=== PATIENT | male | born 1955 | race Caucasian/White ===

== ENCOUNTER 2017-04-02 04:23 | Observation (INO) | payer OTHER ==
[2017-04-02 06:28] LABS: Hematocrit 47 % (42-52); Hemoglobin 16.4 g/dl (14.0-18.0); Mean Corpuscular HGB Conc 35 g/dl (31-36); Mean Corpuscular Hemoglobin 32 pg (27-31); Mean Corpuscular Volume 89 fL (80-94); Mean Platelet Volume 7 um3 (7.4-10.4); Red Cell Distribution Width 13 % (10.5-15)
[2017-04-02 06:35] LABS: Urine Bacteria Absent (Absent); Urine Bilirubin Negative (Negative); Urine Glucose Negative (Negative); Urine Nitrite Negative (Negative)
[2017-04-02 06:42] LABS: ALT 25 U/L (7-52); Albumin 4.2 g/dL (3.2-5.2); Alkaline Phosphatase 83 U/L (34-104); Blood Urea Nitrogen 19 mg/dL (6-24); CO2 Carbon Dioxide 23 mmol/L (22-32); Calcium 9.7 mg/dL (8.6-10.3); Chloride 103 mmol/L (101-111); EGFR African American 98.4 (>60); EGFR Non-African American 76.5 (>60); Globulin 3.4 g/dL (2-4); Glucose 106 mg/dL (70-100); Sodium 134 mmol/L (133-145); Total Protein 7.6 g/dL (6.4-8.9)
[2017-04-02 06:45] LABS: Troponin I 0.01 ng/mL (<0.04)
--- NOTE | 2017-04-02 07:26 | ED ---
Regan Acosta Nikita, scribed for Vernon Leslie on 04/02/17 at 0548 . Complex/Multi-Sys Presentation - HPI Summary HPI Summary: This patient is a 51 year old M presenting to ED with a chief complaint of dizziness since 1400 yesterday afternoon. The CC is described as he just does not feel well. The patient rates the pain 0/10 in severity. Symptoms aggravated by nothing. Symptoms alleviated by nothing. Patient reports near- syncope, hazy vision, fall s/p L foot wasnt working for 2 minutes, GREGORY, and inability to walk. Patient denies L arm tingling/numbness/weakness. - History Of Current Complaint Chief Complaint: EDDizziness Time Seen by Provider: 04/02/17 05:26 Hx Obtained From: Patient Onset/Duration: Sudden Onset, Lasting Minutes, Resolved Timing: Minutes Severity Currently: None Aggravating Factor(s): nothing Alleviating Factor(s): nothing Associated Signs And Symptoms: Positive: Other - Patient reports dizziness, near -syncope, hazy vision, fall s/p L foot wasnt working for 2 minutes, GREGORY, and inability to walk. Patient denies L arm tingling/numbness/weakness. - Allergies/Home Medications Allergies/Adverse Reactions: Allergies Allergy/AdvReac Type Severity Reaction Status Date / Time No Known Allergies Allergy Verified 06/22/15 13:47 Home Medications: Home Medications NK [No Home Medications Reported] 04/02/17 [History Confirmed 04/02/17] PMH/Surg Hx/FS Hx/Imm Hx Endocrine/Hematology History: Denies: Hx Diabetes Cardiovascular History: Denies: Hx Hypertension, Hx Pacemaker/ICD History: Denies: Hx Renal Disease Sensory History: Denies: Hx Hearing Aid Psychiatric History: Denies: Hx Panic Disorder Infectious Disease History: No Infectious Disease History: Reports: Hx Hepatitis - HEP C - STATES "GONE NOW" Denies: Traveled Outside the [place] in Last 30 Days - Family History Known Family History: Negative: Cardiac Disease, Hypertension, Diabetes - Social History Alcohol Use: None Substance Use Type: Reports: None Smoking Status (MU): Heavy Every Day Tobacco Smoker Type: Cigarettes Amount Used/How Often: 1 PPD Review of Systems Positive: Blurred Vision Positive: Other - fall s/p L foot wasnt working Neurological: Other - dizziness, near-syncope, "L foot wasnt working for 2 minutes, unable to walk; denies L arm tingling/numbness/weakness Positive: Headache All Other Systems Reviewed And Are Negative: Yes Physical Exam - Summary Physical Exam Summary: NIH score of 0 Triage Information Reviewed: Yes Vital Signs On Initial Exam: Initial Vitals Temp Pulse Resp BP Pulse Ox 96.9 F 91 18 0/0 99 04/02/17 04:25 04/02/17 04:25 04/02/17 04:25 04/02/17 04:25 04/02/17 04:25 Vital Signs Reviewed: Yes Appearance: Positive: Well-Appearing, No Pain Distress Skin: Positive: Warm, Skin Color Reflects Adequate Perfusion, Dry Head/Face: Positive: Normal Head/Face Inspection Eyes: Positive: EOMI, CALDERON ENT: Positive: Normal ENT inspection Neck: Positive: Supple, Nontender Respiratory/Lung Sounds: Positive: Clear to Auscultation, Breath Sounds Present Cardiovascular: Positive: RRR, Pulses are Symmetrical in both Upper and Lower Extremities Abdomen Description: Positive: Nontender, Soft Bowel Sounds: Positive: Present Musculoskeletal: Positive: Normal, Strength/ROM Intact Neurological: Positive: Normal, Sensory/Motor Intact, Alert, Oriented to Person Place, Time - [place] Coma Scale Coma Scale Total: 15 Diagnostics - Vital Signs Vital Signs Temp Pulse Resp BP Pulse Ox 04/02/17 05:07 91 96 04/02/17 05:05 135/77 04/02/17 04:25 96.9 F 91 18 0/0 99 - Laboratory Lab Results: Lab Results 04/02/17 04/02/17 04/02/17 Range/Units 06:05 06:05 06:05 WBC 14.0 H (3.5-10.8) 10^3/ul RBC 5.20 (4.0-5.4) 10^6/ul Hgb 16.4 (14.0-18.0) g/dl Hct 47 (42-52) % MCV 89 (80-94) fL MCH 32 H (27-31) pg MCHC 35 (31-36) g/dl RDW 13 (10.5-15) % Plt Count 291 (150-450) 10^3/ul MPV 7 L (7.4-10.4) um3 Neut % (Auto) 71.3 (38-83) % Lymph % (Auto) 19.5 L (25-47) % Roosevelt % (Auto) 7.0 (1-9) % Eos % (Auto) 1.5 (0-6) % Baso % (Auto) 0.7 (0-2) % Absolute Neuts (auto) 10.0 H (1.5-7.7) 10^3/ul Absolute Lymphs (auto) 2.7 (1.0-4.8) 10^3/ul Absolute Monos (auto) 1.0 H (0-0.8) 10^3/ul Absolute Eos (auto) 0.2 (0-0.6) 10^3/ul Absolute Basos (auto) 0.1 (0-0.2) 10^3/ul Absolute Nucleated RBC 0.01 10^3/ul Nucleated RBC % 0 INR (Anticoag Therapy) 0.94 (0.89-1.11) APTT 29.3 (26.0-36.3) seconds Sodium 134 (133-145) mmol/L Potassium Pending Chloride 103 (101-111) mmol/L Carbon Dioxide 23 (22-32) mmol/L Anion Gap Pending BUN 19 (6-24) mg/dL Creatinine 1.00 (0.67-1.17) mg/dL Est GFR ( Amer) 98.4 (>60) Est GFR (Non-Af Amer) 76.5 (>60) BUN/Creatinine Ratio 19.0 (8-20) Glucose 106 H (70-100) mg/dL Calcium 9.7 (8.6-10.3) mg/dL Total Bilirubin 0.40 (0.2-1.0) mg/dL AST Pending ALT 25 (7-52) U/L Alkaline Phosphatase 83 (34-104) U/L Troponin I 0.01 (<0.04) ng/mL Total Protein 7.6 (6.4-8.9) g/dL Albumin 4.2 (3.2-5.2) g/dL Globulin 3.4 (2-4) g/dL Albumin/Globulin Ratio 1.2 (1-3) Urine Color Urine Appearance Urine pH (5-9) Ur Specific [place] (1.010-1.030) Urine Protein (Negative) Urine Ketones (Negative) Urine Blood (Negative) Urine Nitrate (Negative) Urine Bilirubin (Negative) Urine Urobilinogen (Negative) Ur Leukocyte Esterase (Negative) Urine WBC (Auto) (Absent) Urine RBC (Auto) (Absent) Urine Bacteria (Absent) Urine Glucose (Negative) 04/02/17 Range/Units 06:05 WBC (3.5-10.8) 10^3/ul RBC (4.0-5.4) 10^6/ul Hgb (14.0-18.0) g/dl Hct (42-52) % MCV (80-94) fL MCH (27-31) pg MCHC (31-36) g/dl RDW (10.5-15) % Plt Count (150-450) 10^3/ul MPV (7.4-10.4) um3 Neut % (Auto) (38-83) % Lymph % (Auto) (25-47) % Roosevelt % (Auto) (1-9) % Eos % (Auto) (0-6) % Baso % (Auto) (0-2) % Absolute Neuts (auto) (1.5-7.7) 10^3/ul Absolute Lymphs (auto) (1.0-4.8) 10^3/ul Absolute Monos (auto) (0-0.8) 10^3/ul Absolute Eos (auto) (0-0.6) 10^3/ul Absolute Basos (auto) (0-0.2) 10^3/ul Absolute Nucleated RBC 10^3/ul Nucleated RBC % INR (Anticoag Therapy) (0.89-1.11) APTT (26.0-36.3) seconds Sodium (133-145) mmol/L Potassium Chloride (101-111) mmol/L Carbon Dioxide (22-32) mmol/L Anion Gap BUN (6-24) mg/dL Creatinine (0.67-1.17) mg/dL Est GFR ( Amer) (>60) Est GFR (Non-Af Amer) (>60) BUN/Creatinine Ratio (8-20) Glucose (70-100) mg/dL Calcium (8.6-10.3) mg/dL Total Bilirubin (0.2-1.0) mg/dL AST ALT (7-52) U/L Alkaline Phosphatase (34-104) U/L Troponin I (<0.04) ng/mL Total Protein (6.4-8.9) g/dL Albumin (3.2-5.2) g/dL Globulin (2-4) g/dL Albumin/Globulin Ratio (1-3) Urine Color Yellow Urine Appearance Clear Urine pH 5.0 (5-9) Ur Specific [place] 1.013 (1.010-1.030) Urine Protein Negative (Negative) Urine Ketones Negative (Negative) Urine Blood 1+ H (Negative) Urine Nitrate Negative (Negative) Urine Bilirubin Negative (Negative) Urine Urobilinogen Negative (Negative) Ur Leukocyte Esterase Negative (Negative) Urine WBC (Auto) Absent (Absent) Urine RBC (Auto) Trace(0-2/hpf) (Absent) Urine Bacteria Absent (Absent) Urine Glucose Negative (Negative) Result Diagrams: 04/02/17 06:05 04/02/17 06:05 Lab Statement: Any lab studies that have been ordered have been reviewed, and results considered in the medical decision making process. - Radiology CXR Radiology Interpretation Completed By: ED Physician - negative - CT Head CT Interpretation Completed By: Radiologist - Normal exam. ED physician has reviewed this radiology report and agrees. - EKG 0445 Cardiac Rate: NL EKG Rhythm: Sinus Rhythm - 84 bpm EKG Interpretation: no acute changes Complex Multi-Symp Course/Dx Assessment/Plan: This patient is a 51 year old M presenting to ED with a chief complaint of dizziness since 1400 yesterday afternoon. Patient reports near- syncope, hazy vision, fall s/p L foot wasnt working for 2 minutes, GREGORY, and inability to walk. Patient denies L arm tingling/numbness/weakness. Head CT reveals normal exam. CXR shows negative. EKG reveals NSR at 84 bpm and no acute changes. Consulted Dr. Rodriguez at 0719 who accepts pt for admission. Pt will be admitted. - Diagnoses Differential Diagnoses/HQI/PQRI: CVA, Metabolic Abnormality - syncopy, Other - syncope, TIA Provider Diagnoses: TIA (transient ischemic attack), Syncope - Physician Notifications Discussed Care Of Patient With: Luz Marina Rodriguez Time Discussed With Above Provider: 07:19 Instructed by Provider To: Other - Consulted Dr. Rodriguez who accepts pt for admission. - Critical Care Time Critical Care Time: 30-74 min Discharge - Discharge Plan Condition: Stable Disposition: ADMITTED TO [facility] Referrals: No Primary Care Phys,NOPCP [Primary Care Provider] - The documentation as recorded by the Regan washington Nikita accurately reflects the service I personally performed and the decisions made by , Vernon Leslie.
[2017-04-02 08:10] LABS: Anion Gap 8 mmol/L (2-11)
--- NOTE | 2017-04-02 08:17 | RAD ---
INDICATION: TIA. COMPARISON: There are no prior studies available for comparison. TECHNIQUE: A portable view of the chest was obtained. FINDINGS: Cardiac and mediastinal contours appear to be within normal limits. The lungs are clear. No pleural effusion is seen. IMPRESSION: NO EVIDENCE FOR ACUTE DISEASE.
--- NOTE | 2017-04-02 08:19 | RAD ---
Indication: Sudden loss of feeling to the lower extremity. LEFT side weakness. Syncope. Comparison: No relevant prior exams available on the [facility] [place] for comparison. Technique: Noncontrast CT vertex of skull through foramen magnum. Report: The sulci, ventricles, and basal cisterns are normal for age. Craven matter white matter differentiation is preserved without evidence for edema. No intra or extra axial hemorrhage, mass, or fluid collection detected. Unremarkable visualized orbital contents. Unremarkable calvarium and skull base. Unremarkable scalp. The visualized paranasal sinuses and mastoid air spaces are clear. IMPRESSION: Negative unenhanced head CT.
[2017-04-02 08:55] LABS: Cholesterol 228 mg/dL; LDL Cholesterol 147 mg/dL; Triglycerides 221 mg/dL
[2017-04-02] MEDS ORDERED: Ondansetron INJ* 2 MG/ML VIAL IV PRN (08:58)
[2017-04-02] MEDS ORDERED: Acetaminophen TAB* 325 MG PO PRN (08:58)
[2017-04-02] MEDS ORDERED: Mouth Piece, Nicotine* 1 EACH CARTRIDGE INH PRN (08:59)
[2017-04-02] MEDS ORDERED: Nicotine Inhaler* 10 MG AMP INH PRN (08:59)
[2017-04-02] MEDS: Aspirin EC Low Dose* 81 MG TAB.EC PO SCH (09:13)
[2017-04-02] MEDS ORDERED: Iohexol 350* (CONTRAST) 500 ML MDV IV ONE (09:21)
--- NOTE | 2017-04-02 10:39 | RAD ---
INDICATION: Near syncopal episode. Functional loss at the LEFT leg . Visual changes. Question TIA/stroke. COMPARISON: No relevant prior exams available [place] the [facility] [place] for comparison. TECHNIQUE: Multidetector CT images were obtained from the aortic arch to the vertex of the head with 80 mL Omnipaque 350 IV contrast. Arterial phase of enhancement. Multiplanar reformation including maximum intensity projection. 3-D arterial volume rendering. Stenosis estimations based on denominator of distal arterial diameter. NECK ANGIOGRAM REPORT: Emphysema noted at the visualized lung apices. Normal configuration of the branch vessels at the aortic arch. Mild atherosclerotic plaque without suggestion of ostial stenosis. Noncalcific plaque results in high-grade approximate 90% stenosis at the post ostial proximal segment of the LEFT subclavian artery. Mild calcific and noncalcific plaque at the RIGHT carotid bulb and proximal internal carotid artery with approximate 20% stenosis resulting. Mild calcific and noncalcific plaque at the LEFT carotid bulb and proximal internal carotid artery with approximate 30% stenosis resulting. Noncalcific plaque at the distal RIGHT vertebral artery at the level of the foramen magnum just distal to the origin of the RIGHT posterior inferior cerebellar artery results in approximate 70% short segment stenosis. Patent unremarkable LEFT vertebral artery. NECK ANGIOGRAM IMPRESSION: 1. Approximate 20% RIGHT internal carotid artery and 30% LEFT internal carotid artery stenosis. 2. Short segment approximate 70% stenosis at the distal RIGHT vertebral artery. 3. Approximate 70% short segment stenosis at the post ostial proximal segment of the LEFT vertebral artery. 4. Given finding of RIGHT vertebral artery stenosis and high-grade stenosis at the proximal LEFT subclavian artery consider carotid ultrasound to assess for potential retrograde flow in the LEFT vertebral artery/subclavian steal. HEAD ANGIOGRAM REPORT: Mild calcific plaque at the carotid siphons without suggestion of hemodynamic significant stenosis. Patent first and second segments of the middle cerebral arteries as well as the first and second segments of the anterior cerebral arteries. Small patent anterior communicating artery. Unremarkable basilar artery and cerebellar artery origins. Patent RIGHT posterior cerebral artery supplied primarily by the posterior circulation with variant hypoplastic RIGHT posterior communicating artery. Patent LEFT posterior cerebral artery supplied primarily by the anterior circulation with variant hypoplastic P1 segment; persistent origin variant. No intracranial aneurysm or vascular malformation evident. HEAD ANGIOGRAM IMPRESSION: 1. Negative for large vessel central intracranial arterial stenosis or occlusion. 2. No intracranial aneurysm evident. CPT II: CPT II Codes: 3100F
--- NOTE | 2017-04-02 11:22 | HP ---
CC: Dr. Bryan HISTORY AND PHYSICAL: DATE OF ADMISSION: 04/02/17 TIME OF EVALUATION: 8:30 a.m. PRIMARY CARE PROVIDER: The patient has no primary care provider. CONSULTING NEUROLOGIST: Dr. Bryan. CHIEF COMPLAINT: "I could not move my leg." HISTORY OF PRESENT ILLNESS: Mr. Nance is a 61-year-old male with past medical history of tobacco abuse that presents to the emergency room with complaint of an episode of being unable to move his le ft leg. He states he was at work, in his usual state of health, when he went to his car to take his break. H e describes he "tripped" on his left side visual field that he could not see well. He got scared wit h that symptom and decided to go back to the building. He got out of his car, but he was unable to a mbulate as he could not move his left leg. He states that he felt dizzy and fell towards his right s jack. He crawled from the parking lot to the building and by the time he got inside, he was able to mo ve his left leg again and was able to ask for help. At that point, the visual field changes and the weakness had resolved and they had lasted a couple minutes. He decided to clock out and go back home, and by the time he got back into his car, the same visual f ield defect happened on his left side. He waited for it to resolve and then decided to drive to the emergency room for further evaluation. At this time, he denies any symptoms. The visual field defec t has resolved. He is able to move all 4 extremities. He denies any tingling or numbness. No alegria e in speech. No chest pain. No palpitations or any other complaints. He states he never had an epi sode like this before, but he does have limited contact with the healthcare system. PAST MEDICAL HISTORY: Tobacco abuse. MEDICATIONS LIST: The patient takes no medications at home. ALLERGIES: No known drug allergies. FAMILY HISTORY: Father was smoker and of throat cancer. Mom is alive and had breast cancer. SOCIAL HISTORY: The patient has been a smoker since age 17 at 1-1/2 to 2 packs a day. He states he drinks occasionally, sometimes a beer a month. Denies any drug use. 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 Surrogate decision maker is his sister, Meagan Nance, phone number is [phone]. REVIEW OF SYSTEMS: A 14-point review of systems was performed and all the pertinent negative and pos itive findings are in the HPI. PHYSICAL EXAMINATION GENERAL: The patient is a middle-aged male, lying in the ED stretcher, in no acute distress. VITAL SIGNS: Temperature 96.9, heart rate is 88, respiratory rate is 18, oxygen saturation is 94% on room air, blood pressure is 140/81. HEENT: Pupils are equal, reactive to light. Extraocular movements intact. Moist mucous membranes. CHEST: Breath sounds present bilaterally with no added sounds. CVS: Normal S1, S2. Regular rate and rhythm. ABDOMEN: Soft. Bowel sounds present. EXTREMITIES: No edema. NEUROLOGIC: He is alert, oriented x3. Visual khanna are intact at this time. Face is symmetric. Sp eech is clear. He is able to move all 4 extremities. Sensation is intact. LABORATORY AND IMAGING DATA: The patient had a CBC that showed WBC of 14, hemoglobin of 16.4, hemat ocrit 47, platelet count 291 with 71% neutrophils. INR is 0.94. Chemistry showed sodium of 134, chl oride of 103, bicarb of 23, BUN of 19, creatinine of 1, glucose of 106, calcium 9.7. LFTs were dann l. Lipid profile showed triglycerides of 221, cholesterol of 228, LDL of 147, HDL of 37. Urinalysis showed only 1+ blood. EKG showed normal sinus rhythm at 84 beats per minute with no ST-T changes, no prior EKG to compare. CT of the brain without contrast was negative, unenhanced head CT. Chest x-ray showed no evidence fo r acute disease. ASSESSMENT AND PLAN: Mr. Nance is a 61-year-old male with a past medical history of tobacco abuse that presents to the emergency room after episodes of left visual field loss and left lower extremit y weakness, who is going to be admitted for transient ischemic attack workup. 1. Probable transient ischemic attack. The patient will be admitted as observation to the telemetry floor. We are going to continue aspirin and add atorvastatin for his hyperlipidemia. The patient w ill be observed with neurological checks. He will have an MRI of the brain without contrast, CT of t he head and neck, and echocardiogram with bubble study as part of his workup. A consultation was max solo with Neurology (Dr. Bryan). 2. Tobacco abuse. The patient will receive nicotine supplementation. 3. DVT prophylaxis. The patient has a score of 2 on the DVT Prophylaxis Risk Assessment Guide. He will be started on subcutaneous heparin. 4. Code status is full. TIME SPENT: Approximately 50 minutes spent with the patient, interview, medical records review, phys ical examination to complete this admission; more than half of this time was spent [id number] with the patient and coordination of care. [id number]/[facility] #: [id number]
[2017-04-02] MEDS ORDERED: Influenza VAC *QUAD* 2017-18* 0.5 ML SYRINGE IM ONE (12:00)
[2017-04-02] MEDS: Heparin VIAL(*) 5000 UNITS/ML VIAL (FIVE THOUSAND) SUBCUT SCH ×2 (13:43→21:20)
--- NOTE | 2017-04-02 16:39 | ECHO ---
Patient: RADHA MCDOWELL [facility] Rec#: [id number] : 1955 Date: 04/02/2017 Age: 61y Height: 175.26 cm / 69.0 in Weight: 83.91 kg / 184.9 lbs Sex: M BSA: 2 Room#: [facility] Admit Date#: 04/02/2017 Type: Inpatient Referring: Lzu Marina Elliott MD Reading: Aidan Velasco MD Retirement Actuary: [facility] Transthoracic Echocardiogram Indication: TIA BP: 134/79 HR: 74 Rhythm: NSR Findings History: Smoker, HTN. Technical Comments: The study quality is fair. The study is technically limited due to the patient's smoking history. Completed at 1630. Left Ventricle: The left ventricular chamber size is normal. Mild concentric left ventricular hypertrophy is observed. Global left ventricular wall motion and contractility are within normal limits. There is normal left ventricular systolic function. The estimated ejection fraction is 55-60%. Abnormal left ventricular diastolic function is observed. There is an E to A reversal in the mitral valve flow pattern suggestive of diastolic dysfunction. Left Atrium: The left atrial chamber size is normal. Right Ventricle: Moderator Band present. The right ventricle is mildly dilated. The right ventricular global systolic function is normal. Right Atrium: The right atrium is mildly dilated. Interatrial septum appears intact without evidence of shunting. The bubble study is negative. A patent foramen ovale is not demonstrated with color Doppler and agitated contrast. Aortic Valve: The aortic valve is trileaflet. The aortic valve leaflets are mildly thickened. There is no evidence of aortic regurgitation. Mitral Valve: There is mitral annular calcification. The mitral valve leaflets are moderately thickened. There is trace to mild mitral regurgitation. There is no evidence of mitral stenosis. Tricuspid Valve: The tricuspid valve leaflets are normal. There is mild tricuspid regurgitation. The right ventricular systolic pressure is estimated at 30 mmHg. There is evidence that pulmonary hypertension may be underestimated. There is no tricuspid stenosis. Pulmonic Valve: The pulmonic valve appears normal. There is a trace pulmonic regurgitation. There is no pulmonic stenosis. Pericardium: There is no significant pericardial effusion. Aorta: There is no dilatation of the ascending aorta. The aortic arch is not well visualized. There is mild dilatation of the aortic root. Pulmonary Artery: The main pulmonary artery is not well visualized. Venous: The inferior vena cava appears normal in size. There is a greater than 50% respiratory change in the inferior vena cava dimension. Contrast: Normal saline was used as contrast for the bubble study. Images 49 and 50. Intravenous contrast was used to help determine presence of intracardiac shunting. Conclusions Global left ventricular wall motion and contractility are within normal limits. There is normal left ventricular systolic function. The estimated ejection fraction is 55-60%. The right ventricular global systolic function is normal. A patent foramen ovale is not demonstrated with color Doppler and agitated contrast. There is no evidence of aortic regurgitation. There is trace to mild mitral regurgitation. There is mild tricuspid regurgitation. There is no significant pericardial effusion. Measurements Name Value Normal Range RVIDd (AP) 2D 2.8 cm (0.9 - 2.6) RVDdMajor (2D) 4.4 cm (2.2 - 4.4) RAd ISD 4CH 5.1 cm (3.4 - 4.9) RA (A4C)W 3.9 cm (2.9 - 4.6) IVSd (2D) 1.2 cm (0.6 - 1) LVPWd (2D) 1.1 cm (0.6 - 1) LVIDd (2D) 4.3 cm (3.6 - 5.4) LVIDs (2D) 3.1 cm - LV FS (2D) 28 % (25 - 45) Aortic Annulus 2.3 cm (1.4 - 2.6) Ao root diameter (2D) 3.6 cm (2.1 - 3.5) Ascending Ao 2.8 cm (2.1 - 3.4) LA dimension (AP) 2D 3.6 cm (2.3 - 3.8) LAd ISD 4CH 4.5 cm (2.9 - 5.3) LA ISD 4CH W 3.8 cm (2.5 - 4.5) Name Value Normal Range LA ESV SP 4CH (A/L) 35 ml - LA ESV SP 2CH (A/L) 67 ml - LA ESV BP (A/L) 52 ml - LA ESV BP (A/L) index 26 ml/m2 - LA ESV SP 4CH (MOD) 29 ml - LA ESV SP 2CH (MOD) 63 ml - Name Value Normal Range MV E-wave Vmax 0.56 m/sec - MV deceleration time 234.36 msec - MV A-wave Vmax 0.76 m/sec - MV E:A ratio 0.74 ratio - LV septal e' Vmax 0.07 m/sec - LV lateral e' Vmax 0.09 m/sec - LV E:e' septal ratio 8 ratio - LV E:e' lateral ratio 6.22 ratio - Name Value Normal Range AV Vmax 1.1 m/sec - AV VTI 22.28 cm - AV peak gradient 4.82 mmHg - AV mean gradient 2.94 mmHg - LVOT Vmax 0.95 m/sec - LVOT VTI 17.92 cm - LVOT peak gradient 3.66 mmHg - LVOT mean gradient 2.16 mmHg - Name Value Normal Range TR Vmax 2.6 m/sec - TR peak gradient 27 mmHg - RAP 3 mmHg - RVSP 30 mmHg - IVC diameter 1.8 cm - Name Value Normal Range PV Vmax 0.63 m/sec - PV peak gradient 1.61 mmHg -
[2017-04-02] MEDS ORDERED: Atorvastatin* 40 MG TAB PO SCH (17:00)
--- NOTE | 2017-04-02 17:23 | RAD ---
INDICATION: Evaluate for subclavian steal COMPARISON: CTA of the head and neck from same date TECHNIQUE: Transverse and longitudinal scans of the carotid and vertebral arteries were performed with diaz scale, color Doppler, and spectral Doppler imaging. Stenosis criteria is based on flow velocities that correlate with visual internal carotid artery diameter (NASCET criteria) FINDINGS: Right carotid: There is moderate plaque involving the bifurcation. There is no spectral broadening. The peak systolic velocity of the internal carotid artery is 99 cm/s and the peak diastolic velocity 33 cm/s. The ICA/CCA ratio is calculated at 0.8. This corresponds to a 6 and 50% diameter stenosis. Left carotid: There is moderate plaque involving the bifurcation. There is no spectral broadening. The peak systolic velocity of the internal carotid artery is 102 cm/s and the peak diastolic velocity 38 cm/s. The ICA/CCA ratio is calculated at 0.9. This corresponds to a less than 50% diameter stenosis. Right vertebral: Right vertebral waveforms are normal and the flow is antegrade. Left vertebral: The visualized left vertebral artery appears widely patent. There is retrograde flow consistent with steal phenomena Other: The waveform in the left subclavian artery is abnormal. CT angiography shows a high-grade proximal stenosis. IMPRESSION: 1. The carotid bifurcations are widely patent bilaterally. There is moderate calcific plaque formation. 2. Steal phenomena left vertebral artery. 3. Please refer also to CT angiogram from same date CPT II Codes: 3100F RS
--- NOTE | 2017-04-02 18:37 | RAD ---
INDICATION: TIA COMPARISON: CT brain, CTA of the head and neck, and ultrasound of the carotids all from the same date TECHNIQUE: sagittal T1 FLAIR, axial diffusion, axial T1 FLAIR, axial T2, axial T2 FLAIR, and SWI images were acquired. FINDINGS: Craniocervical junction: The craniocervical junction appears normal. Ventricles/sulci: The ventricles and cisterns are normal in size and configuration for age. Brain parenchyma: Diffusion weighted images demonstrate tiny, punctate, foci of increased signal intensity, one in each cerebellar hemisphere and an additional focus of increased signal intensity in the posterior right parietal lobe consistent with acute ischemia. Multiple vascular distributions suggest possibility of embolic phenomenon. There are no other focal parenchymal abnormalities. There is no evidence of intracranial mass or mass effect. Intracranial hemorrhage: There is no intracranial hemorrhage. Extra-axial spaces: There are no extra-axial fluid collections or masses. Orbits: There are no MR abnormalities of the orbital structures. Paranasal sinuses/mastoid: The paranasal sinuses are clear. The mastoid air cells are well aerated.. Vascular: No abnormalities are seen. Other: None IMPRESSION: TINY INFRATENTORIAL AND INFRATENTORIAL ISCHEMIC FOCI IDENTIFIED AND SUGGEST THE POSSIBILITY OF EMBOLIC PHENOMENA. NO EVIDENCE OF MASS EFFECT OR HEMORRHAGE.
[2017-04-02] MEDS ORDERED: Nicotine Patch Removal NOTE FOLLOW UP SCH (21:00)
--- NOTE | 2017-04-03 01:29 | CONS ---
CONSULTATION REPORT: DATE OF CONSULT/DICTATION: 04/02/17 PATIENT OF: Dr. Guerra. PRIMARY CARE PHYSICIAN: The patient has no primary care doctor. HISTORY OF PRESENT ILLNESS: This is 61-year-old man who, yesterday, developed visual disturbance off the left side of his vision, he did not test to see if this is an ocular or field cut. This persisted today when he was at work and he was taking a break and he developed left leg weakness acutely, which lasted several minutes. His visual disturbance persisted intermittently throughout the day, but resolved by the time he got to the ER, he drove himself. Of note, he is a chronic smoker since age 17, more than a half to 2 packs a day. He has had some elevated cholesterol in the past, but he does not know the details. PAST MEDICAL HISTORY: He has no other known medical problems. MEDICATIONS: He takes no medicines. ALLERGIES: He has no known allergies. FAMILY HISTORY: His father was smoker and of throat cancer. Mom is alive and has breast cancer. SOCIAL HISTORY: He does not do any drugs. He drinks occasionally. 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 REVIEW OF SYSTEMS: Negative in all 14 spheres other than the HPI. PHYSICAL EXAM: Temperature 97.2, pulse 78, respirations 16, blood pressure 135/ 90. He is alert and oriented with normal speech and comprehension. Cranial nerves II through XII are normal. He had no field cut to large objects today. Fundi were benign. Motor exam revealed normal tone, strength, and coordination. Finger-to- nose, he had no pronator drift. Sensation is intact to light touch. Reflexes were 1 and equal. Toes were downgoing. Neck was supple. Chest is clear. Cardiovascular: Regular rate and rhythm. Abdomen: Soft with positive bowel sounds. DIAGNOSTIC STUDIES/LAB DATA: His CT scan was reviewed, which showed no acute findings. His CTA was abnormal for 70% right vertebral artery distal stenosis, 70% left vertebral stenosis. He had left subclavian stenosis that was high-grade. He had 20% right carotid and 30% left carotid stenosis. Labs include, white count of 14,000, hematocrit 47, platelets 291. Normal INR and PTT. Normal CMP other than a cholesterol of 147, glucose 106. UA was negative other than 1+ blood. IMPRESSION AND PLAN: Mr. Nance has what sounds like a left field cut and constant left leg weakness. His symptoms were present for more than 12 hours and probably represent a small stroke. He has vertebrobasilar stenosis and this may have been on the basis of his vertebrobasilar disease. He needs to be on aspirin, statin. He needs to give up smoking, discussed this at length with him. He is going to get a carotid ultrasound to look for subclavian steal as the cause of his presumed basilar artery insufficiency and he will also need echo and an MRI scan. Thank you for sharing his case. [id number]/[facility] #: [id number] ZOILA
[2017-04-03] MEDS: Heparin VIAL(*) 5000 UNITS/ML VIAL (FIVE THOUSAND) SUBCUT SCH ×2 (05:44→15:30)
[2017-04-03] MEDS: Aspirin EC Low Dose* 81 MG TAB.EC PO SCH (07:27)
[2017-04-03] MEDS ORDERED: Nicotine PATCH 21 MG/24 HR* PATCH TRANSDERM SCH (08:00)
[2017-04-03 16:47] VITALS: BP 133/86
--- NOTE | 2017-04-04 03:44 | PN ---
PROGRESS NOTE: DATE OF SERVICE / DICTATION: 04/03/17 PATIENT OF: Dr. Bonds. HISTORY: His symptoms visual symptoms, leg weakness, and he denies any claudication. No past history of this. MEDICATIONS: Include: 1. Atorvastatin 40 mg. 2. Aspirin 81. 3. Nicotine patch. PHYSICAL EXAMINATION: Temperature 98.1, pulse 80, respirations 18, blood pressure 91/70. He is alert and oriented with normal speech and comprehension. Cranial nerves II through XII were intact. Fundi were benign. Motor exam revealed normal tone, strength, coordination and gait. Sensation intact to light touch. Reflexes 2 and equal, downgoing toes. IMPRESSION AND PLAN: I talked to Dr. Hernandez yesterday and then again today after we sent him the remaining images and I discussed with Joshua the full results, namely that his carotid Doppler and CTA showed a clinically significant subclavian steal syndrome involving left vertebral artery and the subclavian artery. His MRI scan showed evidence of infratentorial and ischemic foci. Reviewing the films, Dr. Hernandez thought these may be watershed from the subclavian steal. I discussed with Joshua and Dr. Bonds that we will be treating him with 325 mg of aspirin daily, atorvastatin 80 mg daily, and he needs to quit smoking and is on a patch. Now, he needs a primary doctor, but I will be glad to see him back in addition in [address] Hernandez thought that with maximum medical therapy, things may change and improve somewhat, but if he had any further symptoms of either arm claudication or stroke symptoms, then he would need vascular surgery. He thought it would be reasonable to get a vascular consult as an outpatient now and Dr. Bonds is going to arrange for that either locally or up at [place]. Thank you for sharing his case. [id number]/[facility] #: [id number] ZOILA
--- NOTE | 2017-04-04 04:11 | DS ---
DISCHARGE SUMMARY: DATE OF ADMISSION: 04/02/17 DATE OF DISCHARGE: 04/03/17 ADMITTING PROVIDER: Luz Marina Guerra MD ATTENDING PHYSICIAN: Rivas Bonds MD PRIMARY CARE PROVIDER: The patient cannot recall, but probably at [place] location. CHIEF COMPLAINT: Speech difficulty and then inability to move his left leg. PRINCIPAL DIAGNOSES: 1. Cerebrovascular accident. 2. Transient ischemic attack. 3. Left subclavian steal. PAST MEDICAL HISTORY: Smoking use, current; inconsistent medical followup. HISTORY OF PRESENT ILLNESS AND HOSPITAL COURSE: Mr. Nance is a 61-year-old male with past medical history of active smoker, who presented to the emergency room with complaint of being unable to move his left leg. Initial symptoms were he could not see well out of his left side of his visual field while he was at work and walking to his car on break. Getting out of his car, he was unable to move his left leg at all. He felt dizzy and fell towards his right side, had to crawl from the parking lot to the building. By the time, he got there, he was able to move to his left leg again. Visual field changes and weakness had resolved after a few minutes. He, at the end of his [facility] position, end of day, he went back to his car, the same visual field defects happened on the left side, and when they did not , he drove himself to the emergency room for further evaluation. Visual khanna resolved in the emergency room. He had a neurology consult and a CT brain was obtained which was negative. CTA of the head demonstrated no large vessel or central intracranial arterial stenosis or occlusion or aneurysms. Brain MRI demonstrated tiny infarcts and total ischemic foci suggesting the possibility of embolic phenomenon. No evidence of mass effect or hemorrhage. He had a carotid bilateral Doppler, which showed widely patent carotid bifurcations with moderate calcific plaque formation and demonstration of left vertebral artery steal phenomenon. The CTA of the neck had showed 20% right internal carotid artery and 30% left internal carotid artery stenosis with a short segment of approximately 70% stenosis of the distal right vertebral artery. Approximately 70% short segment stenosis on the post ostial proximal segment of the left vertebral artery. Dr. Bryan evaluated the patient, discussed the case with [facility] Neurology Department who was sent images. He is being recommended discharge on 325 mg aspirin, Lipitor 80 mg daily and follow up with the Vascular Surgery for further evaluation of his left-sided subclavian steal syndrome. The patient's neurologic symptoms resolved completely. His LDL was 137, HDL 37, triglycerides 221. He had previously been on Lipitor, but stopped about a year to 2 ago when he reportedly lost weight on advice of his primary care physician at that time. 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 DISCHARGE MEDICATIONS: Include: 1. Aspirin 325 mg p.o. daily (new). 2. Atorvastatin 8 mg p.o. daily (new). 3. Nicotine patch 21 mg per 24 hours daily (new). DISCHARGE DIET: Heart healthy. 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 He can follow up with Dr. Bryan and Dr. Daria Merino of Vascular Surgery as well as his primary care physician at [place], which he cannot recall the name of. Of note, he has also seen physicians at [place] before. FOLLOWUP: Please follow up with his primary care physician, Dr. Daria Merino within 1 to 2 weeks, and Dr. Nato Bryan within 1 to 2 weeks. TIME SPENT: Time spent on discharge. 35 minutes. [id number]/[facility] #: [id number] MTDD
== END 2017-04-03 16:52 | disposition home or self-care (01) ==
LOC: ED 04:23 → MEDTELE 08:55
PROVIDERS: ADMIT Internal Medicine; ATTEND Internal Medicine
DX: I63.9 Cerebral infarction, unspecified (principal); G45.9 Transient cerebral ischemic attack, unspecified; G45.8 Other transient cerebral ischemic attacks and related syndromes; F17.210 Nicotine dependence, cigarettes, uncomplicated; I51.7 Cardiomegaly; Z23 Encounter for immunization
CPT/HCPCS: 36415; 70450; 70496; 70498; 70551; 71010; 80053; 80061; 81003; 81015; 84484; 85025; 85610; 85730; 90471; 90686; 93005; 93306; 93880; 96372; 99291; 99406; A9270-GY; G0008; G0378; J1644; Q9967

== ENCOUNTER 2018-09-30 02:02 | Emergency (ER) | payer OTHER ==
[2018-09-30] MEDS ORDERED: Albuterol/Ipratropium NEB.SOL* Albuterol 2.5 MG/Ipratropium 0.5 MG 3 ML INH ONE (02:23)
[2018-09-30] MEDS ORDERED: predniSONE TAB* 50 MG PO ONE (02:23)
[2018-09-30] MEDS ORDERED: Albuterol 2.5 MG/3 ML NEB.SOL* (0.083%) INH ONE (02:33)
[2018-09-30] MEDS: Albuterol 2.5 MG/3 ML NEB.SOL* (0.083%) INH SCH ×2 (02:35→02:48)
[2018-09-30] MEDS ORDERED: Levofloxacin TAB* 250 MG PO ONE (03:22)
[2018-09-30] MEDS ORDERED: Albuterol HFA INHALER* 8 gm MDI INH ONE (03:25)
--- NOTE | 2018-09-30 03:27 | ED ---
Shortness of Breath - HPI Summary HPI Summary: Patient is a 63 y/o M presenting to ED with complaints of SOB. He states that he has been fatigued and sleeping frequently for the past few days. Patient has been taking Mucinex with minimal relief. Tonight, patient began to experience SOB. No fever reported, he denies pain as well. He states that he is a former smoker of six months. On triage, pain is denied, nothing is noted to aggravate/ alleviate Sx. Home medications and allergies are reviewed. - History of Current Complaint Chief Complaint: EDUpperRespComplaint Time Seen by Provider: 09/30/18 02:10 Hx Obtained From: Patient Onset/Duration: Lasting Hours - SOB, Lasting Days - fatigue, Still Present Timing: Constant Current Severity: None Aggrevating Factors: Nothing Alleviating Factors: Nothing - Allergy/Home Medications Allergies/Adverse Reactions: Allergies Allergy/AdvReac Type Severity Reaction Status Date / Time No Known Allergies Allergy Verified 09/30/18 02:04 PMH/Surg Hx/FS Hx/Imm Hx Endocrine/Hematology History: Denies: Hx Diabetes Cardiovascular History: Denies: Hx Hypertension, Hx Pacemaker/ICD History: Denies: Hx Renal Disease Sensory History: Reports: Hx Contacts or Glasses Denies: Hx Hearing Aid Opthamlomology History: Reports: Hx Contacts or Glasses Psychiatric History: Denies: Hx Panic Disorder - Surgical History Surgery Procedure, Year, and Place: SCAR TISSUE REMOVED FROM RIGHT FOOT Infectious Disease History: Yes Infectious Disease History: Reports: Hx Hepatitis - HEP C - STATES "GONE NOW" Denies: Traveled Outside the [place] in Last 30 Days - Family History Known Family History: Negative: Cardiac Disease, Hypertension, Diabetes - Social History Alcohol Use: None Substance Use Type: Reports: None Smoking Status (MU): Former Smoker Type: Cigarettes Amount Used/How Often: 1 PPD Review of Systems Positive: Fatigue. Negative: Fever Positive: Shortness Of Breath All Other Systems Reviewed And Are Negative: Yes Physical Exam - Summary Physical Exam Summary: VITAL SIGNS: Reviewed. GENERAL: Patient is a well-developed and nourished male who is lying comfortable in the stretcher. Patient is not in any acute respiratory distress. HEAD AND FACE: No signs of trauma. No ecchymosis, hematomas or skull depressions. No sinus tenderness. EYES: PERRLA, EOMI x 2, No injected conjunctiva, no nystagmus. EARS: Hearing grossly intact. Ear canals and tympanic membranes are within normal limits. MOUTH: Oropharynx within normal limits. NECK: Supple, trachea is midline, no adenopathy, no JVD, no carotid bruit, no c- spine tenderness, neck with full ROM CHEST: Symmetric, no tenderness at palpation LUNGS: Bilateral scattered expiratory and inspiratory wheezes CVS: Regular rate and rhythm, S1 and S2 present, no murmurs or gallops appreciated. ABDOMEN: Soft, non-tender. No signs of distention. No rebound no guarding, and no masses palpated. Bowel sounds are normal. EXTREMITIES: FROM in all major joints, no edema, no cyanosis or clubbing. NEURO: Alert and oriented x 3. No acute neurological deficits. Speech is normal and follows commands. SKIN: Dry and warm Triage Information Reviewed: Yes Vital Signs On Initial Exam: Initial Vitals Temp Pulse Resp BP Pulse Ox 97.4 F 94 18 154/108 91 09/30/18 02:03 09/30/18 02:03 09/30/18 02:03 09/30/18 02:03 09/30/18 02:03 Vital Signs Reviewed: Yes Diagnostics - Vital Signs Vital Signs Temp Pulse Resp BP Pulse Ox 09/30/18 02:35 85 20 99 09/30/18 02:22 85 92 09/30/18 02:03 97.4 F 94 18 154/108 91 - Laboratory Lab Statement: Any lab studies that have been ordered have been reviewed, and results considered in the medical decision making process. - Radiology CXR Radiology Interpretation Completed By: ED Physician Summary of Radiographic Findings: CXR showed COPD, no acute infiltrate, pending official report. Re-Evaluation - Re-Evaluation First Eval Re-Evaluation Time: 03:23 Change: Improved Comment: Patient reports improvement of Sx after medications, he will be discharged to home and follow up with PCP. He is agreeable with this. Strict return precautions given. Course/Dx - Course Course Of Treatment: Patient is a 63 y/o M presenting to ED with complaints of SOB. He states that he has been fatigued and sleeping frequently for the past few days. Patient has been taking Mucinex with minimal relief. Tonight, patient began to experience SOB. No fever reported, he denies pain as well. He states that he is a former smoker of six months. On physical exam, bilateral scattered expiratory and inspiratory wheezes. CXR showed COPD, no acute infiltrate. During ED course, patient received prednisone 50 mg PO, Levaquin 750 mg PO, duoneb 1 neb INH, albuterol 2.5 mg INH, 2 doses. Patient reports improvement of Sx after medications, he will be discharged to home and follow up with PCP. He is agreeable with this. Strict return precautions given. - Diagnoses Provider Diagnoses: COPD (chronic obstructive pulmonary disease), Bronchitis Discharge - Sign-Out/Discharge Documenting (check all that apply): Patient Departure - discharge Patient Received Moderate/Deep Sedation with Procedure: No - Discharge Plan Condition: Stable Disposition: HOME Prescriptions: Albuterol HFA INHALER* [Ventolin HFA Inhaler*] 2 puff INH Q4H PRN #2 mdi PRN Reason: Sob/Wheezing Levofloxacin TAB* [Levaquin TAB*] 750 mg PO DAILY #7 tab predniSONE TAB* [Deltasone TAB*] 50 mg PO DAILY #5 tab Patient Education Materials: Acute Bronchitis (ED), COPD (Chronic Obstructive Pulmonary Disease) (ED) Referrals: Daryl Fernandez MD [Primary Care Provider] - 3 Days Additional Instructions: PLEASE RETURN TO THE ED IMMEDIATELY FOR WORSENING OR CONCERNING SYMPTOMS. FOLLOW UP WITH YOUR PRIMARY CARE PHYSICIAN WITHIN THREE DAYS. - Attestation Statements Document Initiated by Scribe: Yes Documenting Scribe: RAYRAY BARON Provider For Whom Oral is Documenting (Include Credential): ROSEY BLACKWELL MD Scribe Attestation: IRAYRAY, scribed for ROSEY BLACKWELL MD on 09/30/18 at 0337. Status of Scribe Document: Ready
[2018-09-30 03:35] VITALS: BP 129/87
[2018-09-30] MEDS ORDERED: Albuterol HFA INHALER* 8 gm MDI INH SCH (07:00)
== END 2018-09-30 03:34 | disposition home or self-care (01) ==
LOC: ED 02:02
DX: J44.9 Chronic obstructive pulmonary disease, unspecified (principal); Z87.891 Personal history of nicotine dependence
CPT/HCPCS: 71045; 99283; A9270-GY; J7512